=== PATIENT | female | born 1980 | race Caucasian/White ===

== ENCOUNTER 2024-03-24 05:43 | Observation (INO) | payer OTHER ==
[2024-03-24 06:19] VITALS: BMI 27.3
[2024-03-24] MEDS ORDERED: hydrALAZINE 20 MG/ML VIAL SLOW IVP PRN (08:47)
[2024-03-24] MEDS ORDERED: Lorazepam 1 MG TAB PO PRN (08:49)
[2024-03-24] MEDS ORDERED: Senokot S 8.6-50 MG TAB PO PRN (08:50)
[2024-03-24] MEDS ORDERED: Acetaminophen 325 MG TAB PO PRN (08:50)
[2024-03-24] MEDS ORDERED: Calcium Carbonate 500 MG ChewTAB PO PRN (08:50)
[2024-03-24 09:43] LABS: Cardiac Risk 3.6 (Less than 4.5)
[2024-03-24 09:47] LABS: Troponin I Less than 0.010 ng/mL (< 0.028)
[2024-03-24] MEDS: Famotidine 20 MG TAB PO SCH (11:11)
[2024-03-24] MEDS: Sodium Chloride 0.9% 1,000 ML IV SCH (11:11)
[2024-03-24] MEDS: FLU (Fluarix Triv) TS24-25(6MOS UP)/PF 45 MCG/0.5 ML Syringe IM ONE (12:44)
[2024-03-24] MEDS ORDERED: ALPRAZolam 0.25 MG TAB PO PRN (13:00)
[2024-03-24] MEDS: HYDROcodone/Acetaminophen 10/325 mg Tablet PO PRN (13:07)
[2024-03-24] MEDS: Cyclobenzaprine 10 MG TAB PO PRN (13:08)
[2024-03-24] MEDS: Pregabalin 50 MG CAP PO SCH (13:11)
[2024-03-24] MEDS: Lorazepam 2 MG/ML VIAL SLOW IVP SCH (14:16)
[2024-03-24] MEDS: HYDROcodone/Acetaminophen 5/325 mg Tablet PO SCH (15:16)
[2024-03-24] MEDS: Atorvastatin Calcium 40 MG TAB PO SCH (20:31)
[2024-03-24] MEDS: Aspirin 81 mg Enteric Coated Tablet PO SCH (20:31)
[2024-03-24] MEDS ORDERED: Enoxaparin 40 MG (0.4 mL) SYRINGE SC SCH (21:00)
[2024-03-24] MEDS: Lorazepam 0.5 MG TAB PO SCH (21:29)
[2024-03-25] MEDS: hydrOXYzine 25 MG TAB PO SCH (00:47)
[2024-03-25 05:24] LABS: #Basophils 0.03 10x3/uL (0.0-0.2); %Basophils 0.4 % (0.0-1.0); %Eosinophils 0.9 % (0.0-10.0); %Lymphocytes 22.9 % (21.0-51.0); %Monocytes 6.6 % (0.0-10.0); %Neutrophils 68.9 % (42.0-75.0); Hematocrit 45.3 % (36.0-47.0); Hemoglobin 14.9 g/dL (12.0-16.0); Mean Corpuscular HGB CONC 32.9 g/dL (32.0-36.0); Mean Corpuscular Hemoglobin 28.1 pg (27.0-31.0); Mean Corpuscular Volume 85.5 fL (78.0-98.0); Mean Platelet Volume 11.3 fL (7.4-10.4); Platelet Count 256 10x3/uL (130-400); RBC Distribution Width 12.7 % (11.5-14.5)
[2024-03-25 05:58] LABS: Anion Gap 14 mmol/L (10-20); BUN (Urea Nitrogen) 21 mg/dL (7.0-18.7); Calc. Creatinine Clearance 108 mL/min (70-130); Carbon Dioxide 21 mmol/L (22-29); Chloride 107 mmol/L (98-107); Estimated GFR 99; Glucose 118 mg/dL (70-105); Potassium 3.8 mmol/L (3.5-5.1); Sodium 138 mmol/L (136-145)
[2024-03-25 07:42] VITALS: BP 131/79; TEMP 98.1
[2024-03-25] MEDS: ALPRAZolam 0.5 MG TAB PO SCH (10:40)
[2024-03-25] MEDS: HYDROcodone/Acetaminophen 10/325 mg Tablet PO SCH (10:40)
== END 2024-03-25 11:50 | disposition home or self-care (01) ==
LOC: 2SE 05:43
PROVIDERS: ADMIT Family Medicine; ATTEND Family Medicine
DX: R29.818 Other symptoms and signs involving the nervous system (principal); I10 Essential (primary) hypertension; G89.4 Chronic pain syndrome; N20.0 Calculus of kidney; F41.9 Anxiety disorder, unspecified; F17.290 Nicotine dependence, other tobacco product, uncomplicated; Z87.59 Personal history of other complications of pregnancy, childbirth and the puerperium; Z90.710 Acquired absence of both cervix and uterus; Z98.890 Other specified postprocedural states; Z79.899 Other long term (current) drug therapy
CPT/HCPCS: 36415; 70450; 70496; 70498; 70551; 71045; 80048; 80053; 80061; 80306; 80307; 83735; 84484; 84703; 85025; 85610; 85730; 86900; 86901; 93005; 96374; 96375; G0378; J2060; J3360; J7030